=== PATIENT | male | born 1960 | race Caucasian/White ===

== ENCOUNTER 2020-11-02 11:52 | Inpatient (IN) | payer BC ==
--- OUTSIDE RECORDS SUMMARY | 2020-11-02 12:11 | XMS REPORT | Continuity of Care Document ---
:1960 Author Organization [facility] Address [address] [place] [address] [address] [place] [address] Care Team Providers Name Role Phone Unavailable Unavailable Unavailable Problems This patient has no known problems. Allergies, Adverse Reactions, Alerts This patient has no known allergies or adverse reactions. Medications This patient has no known medications. Procedures This patient has no known procedures. Results This patient has no known results.
--- NOTE | 2020-11-02 13:13 | RAD REPORT ---
EXAM DESCRIPTION: RAD - Chest Pa And Lat (2 Views) - 11/02/2020 1:07 pm CLINICAL HISTORY: SOB Chest pain. COMPARISON: <Comparisons> FINDINGS: Interstitial and airspace opacity is present in the left parahilar region extending into t he left upper lobe as well as the right lower lobe. Small bilateral pleural effusions are seen. The h eart is normal in size. No displaced fractures. IMPRESSION: Bilateral interstitial and airspace opacities are present which have the appearance of a typical infection or bronchitis.
[2020-11-02 14:13] LABS: Absolute Lymphocytes (CBC) 1.7 K/uL (0.7-4.9); Basophils % 0.3 % (0-1.3); Lymphocytes % 13.4 % (15.3-44.8); MPV 7.8 fL (7.6-11.3); RBC Red Blood Cell Count 4.53 M/uL (4.33-5.43)
[2020-11-02 14:21] LABS: Protime INR 1.37
[2020-11-02 14:50] LABS: Albumin 2.5 g/dL (3.4-5.0); Bilirubin Direct 0.2 mg/dL (0-0.2); Bilirubin Total 0.4 mg/dL (0.2-1.0); Magnesium 1.7 mg/dL (1.8-2.4); Potassium 5.1 mmol/L (3.5-5.1); Protein, Total 6.6 g/dL (6.4-8.2)
[2020-11-02 14:57] LABS: Troponin (Emerg Dept Use Only) 1.61 ng/mL (0.0-0.045)
--- NOTE | 2020-11-02 16:05 | EDPHYS ---
Physician Documentation [facility] Name: Byron Block Age: 60 yrs Sex: Male : 1960 Arrival Date: 11/02/2020 Time: 11:53 Bed 18 Private MD: Javi Manriquez ED Physician Yrn Denton HPI: 11/02 17:51 This 60 yrs old Male presents to ER via Ambulatory with complaints of kb Shortness Of Breath. 17:51 The patient has shortness of breath with light activity. Onset: The symptoms/episode kb began/occurred 1 week(s) ago, and became worse today. Duration: The symptoms are intermittent. The patient's shortness of breath is aggravated by exertion, is alleviated by rest. Associated signs and symptoms: Pertinent positives: chest pain, productive cough. Severity of symptoms: At their worst the symptoms were moderate in the emergency department the symptoms are unchanged. The patient has not experienced similar symptoms in the past. The patient has not recently seen a physician. Historical: - Allergies: 12:07 No Known Allergies; jd3 - Home Meds: 12:07 pantoprazole oral oral [Active]; amlodipine oral [Active]; Bystolic oral oral [Active]; jd3 Myfortic oral oral [Active]; Prograf Oral [Active]; pravastatin oral oral [Active]; fludrocortisone oral oral [Active]; Novolog subcutaneous Sub-Q [Active]; Lantus Sub-Q [Active]; - PMHx: 12:07 Hypertension; Diabetes - IDDM; GERD; jd3 - PSHx: 12:07 liver tansplant; Appendectomy; jd3 - Immunization history:: Adult Immunizations up to date. - Social history:: Smoking status: Patient reports the use of cigarette tobacco products, smokes one pack cigarettes per day. ROS: 17:50 Constitutional: Negative for fever, chills, and weight loss. kb 17:50 Cardiovascular: Positive for chest pain, "feels like lower chest/upper abd is caving in at times", Negative for edema, orthopnea, palpitations, paroxysmal nocturnal dyspnea. 17:50 Respiratory: Positive for cough, dyspnea on exertion, shortness of breath, Negative for hemoptysis, orthopnea, pleurisy, wheezing. 17:50 All other systems are negative. Exam: 17:50 Constitutional: This is a well developed, well nourished patient who is awake, alert, kb and in no acute distress. Head/Face: Normocephalic, atraumatic. ENT: Moist Mucous membranes Cardiovascular: Regular rate and rhythm with a normal S1 and S2. No gallops, murmurs, or rubs. No pulse deficits. Respiratory: Respirations even and unlabored. No increased work of breathing, no retractions or nasal flaring. Abdomen/GI: Soft, non-tender. No distention Skin: Warm, dry with normal turgor. Normal color. MS/ Extremity: Pulses equal, no cyanosis. Neurovascular intact. Full, normal range of motion. Neuro: Awake and alert, GCS 15, oriented to person, place, time, and situation. Moves all extremities. Normal gait. Psych: Awake, alert, with orientation to person, place and time. Behavior, mood, and affect are within normal limits. Vital Signs: 12:07 BP 105 / 77; Pulse 84; Resp 17 S; Temp 99.0(TE); Pulse Ox 100% on R/A; Weight 86.18 kg jd3 (R); Height 5 ft. 10 in. (177.80 cm) (R); Pain 8/10; 13:42 BP 107 / 84; Pulse 87; Resp 18; Pulse Ox 100% on R/A; ll1 15:30 BP 110 / 54; Pulse 83; Resp 18; Pulse Ox 99% on R/A; ll1 16:57 BP 123 / 63; Pulse 81; Resp 17; Pulse Ox 98% on R/A; ll1 19:02 BP 103 / 66; Pulse 84; Resp 16; Pulse Ox 98% on R/A; ll1 12:07 Body Mass Index 27.26 (86.18 kg, 177.80 cm) jd3 MDM: 13:42 Patient medically screened. kb 16:01 Data reviewed: vital signs, nurses notes. Data interpreted: Pulse oximetry: on room air kb is 100 %. Interpretation: normal. Counseling: I had a detailed discussion with the patient and/or guardian regarding: the historical points, exam findings, and any diagnostic results supporting the discharge/admit diagnosis, lab results, radiology results, the need for further work-up and treatment in the hospital. Physician consultation: Charlee Villatoro MD was contacted at 16:02, regarding admission, to the telemetry unit. patient's condition, and will see patient in ED, shortly, will admit to sybil. 11/02 13:50 Order name: Basic Metabolic Panel; Complete Time: 15:01 kb 11/02 13:50 Order name: CBC with Diff; Complete Time: 14:26 kb 11/02 13:50 Order name: LFT's; Complete Time: 15:01 kb 11/02 13:50 Order name: Magnesium; Complete Time: 15:01 kb 11/02 13:50 Order name: NT PRO-BNP; Complete Time: 15:01 kb 11/02 13:50 Order name: PT-INR; Complete Time: 14:45 kb 11/02 12:16 Order name: Chest Pa And Lat (2 Views) XRAY; Complete Time: 13:43 sv 11/02 12:16 Order name: EKG; Complete Time: 12:16 sv 11/02 12:16 Order name: EKG - Nurse/Tech; Complete Time: 12:16 sv 11/02 13:50 Order name: Troponin (emerg Dept Use Only); Complete Time: 15:01 kb 11/02 13:50 Order name: Cardiac monitoring; Complete Time: 13:52 kb 11/02 15:49 Order name: SARS-COV-2 RT PCR; Complete Time: 15:51 EDMS 11/02 17:19 Order name: CONS Physician Consult EDOH 11/02 13:50 Order name: IV Saline Lock; Complete Time: 13:52 kb 11/02 13:50 Order name: Labs collected and sent; Complete Time: 13:52 kb 11/02 13:50 Order name: O2 Per Protocol; Complete Time: 13:52 kb 11/02 13:50 Order name: O2 Sat Monitoring; Complete Time: 13:52 kb Administered Medications: No medications were administered Disposition: 11/03 07:06 Co-signature as Attending Physician, Yrn Denton MD. rn Disposition: 11/02/20 16:04 Hospitalization ordered by Elton Valle for Inpatient Admission. Preliminary diagnosis are Dyspnea, Elevated troponin, hyponatremia. - Bed requested for Telemetry/MedSurg (Inpatient). - Status is Inpatient Admission. ea - Condition is Stable. - Problem is new. - Symptoms are unchanged. Signatures: Dispatcher [employer] EDMS Huma Lopez, LICENSED PHARMACIST-C LICENSED PHARMACIST-Ckb Nicki Degroot Danyell Beltrán, RN RN Yrn Aguilar MD MD rn Antunez, Elena, RN RN ea Davies, Jonathon RN RN jd3 Corrections: (The following items were deleted from the chart) 11/02 14:49 13:50 CORONAVIRUS+MR.LAB.BRZ ordered. EDOH EDOH 18:47 16:04 Hospitalization Ordered by Elton Valle DO for Inpatient Admission. Preliminary bd diagnosis is Dyspnea; Elevated troponin; hyponatremia. Bed requested for Telemetry/MedSurg (Inpatient). Status is Inpatient Admission. Condition is Stable. Problem is new. Symptoms are unchanged. kb 20:20 18:47 11/02/2020 16:04 Hospitalization Ordered by Elton Valle DO for Inpatient ea Admission. Preliminary diagnosis is Dyspnea; Elevated troponin; hyponatremia. Bed requested for Telemetry/MedSurg (Inpatient). Status is Inpatient Admission. Condition is Stable. Problem is new. Symptoms are unchanged. bd
--- NOTE | 2020-11-02 16:05 | ER ---
Nurse's Notes [facility] Name: Byron Block Age: 60 yrs Sex: Male : 1960 Arrival Date: 11/02/2020 Time: 11:53 Bed 18 Private MD: Javi Manriquez Diagnosis: Dyspnea;Elevated troponin;hyponatremia Presentation: 11/02 12:02 Chief complaint: Patient states: "I have been getting short of breath with exertion. no jd3 pain, just seems like I loose my breath walking from one place to the next.". Coronavirus screen: At this time, the client does not indicate any symptoms associated with coronavirus-19. Ebola Screen: Patient negative for fever greater than or equal to 101.5 degrees Fahrenheit, and additional compatible Ebola Virus Disease symptoms. Initial Sepsis Screen: Does the patient meet any 2 criteria? No. Patient's initial sepsis screen is negative. Does the patient have a suspected source of infection? No. Patient's initial sepsis screen is negative. Risk Assessment: Do you want to hurt yourself or someone else? Patient reports no desire to harm self or others. Onset of symptoms was November 02, 2020. 12:02 Method Of Arrival: Ambulatory jd3 12:02 Acuity: JUSTINE 3 jd3 Historical: - Allergies: 12:07 No Known Allergies; jd3 - Home Meds: 12:07 pantoprazole oral oral [Active]; amlodipine oral [Active]; Bystolic oral oral [Active]; jd3 Myfortic oral oral [Active]; Prograf Oral [Active]; pravastatin oral oral [Active]; fludrocortisone oral oral [Active]; Novolog subcutaneous Sub-Q [Active]; Lantus Sub-Q [Active]; - PMHx: 12:07 Hypertension; Diabetes - IDDM; GERD; jd3 - PSHx: 12:07 liver tansplant; Appendectomy; jd3 - Immunization history:: Adult Immunizations up to date. - Social history:: Smoking status: Patient reports the use of cigarette tobacco products, smokes one pack cigarettes per day. Screenin:44 Abuse screen: Denies threats or abuse. Nutritional screening: No deficits noted. ll1 Tuberculosis screening: No symptoms or risk factors identified. 16:58 Fall Risk IV access (20 points). Total Jordan Fall Scale indicates No Risk (0-24 pts). ll1 Assessment: 12:16 Reassessment: Received VO from Dr Denton for EKG and CXR. sv 13:44 General: Appears in no apparent distress. Behavior is calm, cooperative, appropriate ll1 for age. Pain: Denies pain. Neuro: No deficits noted. Cardiovascular: No deficits noted. Rhythm is regular. Respiratory: Reports shortness of breath on exertion Airway is patent Trachea midline Respiratory effort is even, unlabored, Respiratory pattern is regular, symmetrical, Breath sounds are clear bilaterally. the patient has mild shortness of breath. 14:45 Reassessment: No changes from previously documented assessment. Patient and/or family ll1 updated on plan of care and expected duration. Pain level reassessed. 15:45 Reassessment: No changes from previously documented assessment. Patient and/or family ll1 updated on plan of care and expected duration. Pain level reassessed. Patient is alert, oriented x 3, equal unlabored respirations, skin warm/dry/pink. 16:45 Reassessment: No changes from previously documented assessment. Patient and/or family ll1 updated on plan of care and expected duration. Pain level reassessed. 17:45 Reassessment: No changes from previously documented assessment. Patient and/or family ll1 updated on plan of care and expected duration. Pain level reassessed. Patient is alert, oriented x 3, equal unlabored respirations, skin warm/dry/pink. 18:45 Reassessment: No changes from previously documented assessment. Patient and/or family ll1 updated on plan of care and expected duration. Pain level reassessed. Patient is alert, oriented x 3, equal unlabored respirations, skin warm/dry/pink. 19:20 Reassessment: Patient and/or family updated on plan of care and expected duration. Pain ea level reassessed. Patient is alert, oriented x 3, equal unlabored respirations, skin warm/dry/pink. Vital Signs: 12:07 BP 105 / 77; Pulse 84; Resp 17 S; Temp 99.0(TE); Pulse Ox 100% on R/A; Weight 86.18 kg jd3 (R); Height 5 ft. 10 in. (177.80 cm) (R); Pain 8/10; 13:42 BP 107 / 84; Pulse 87; Resp 18; Pulse Ox 100% on R/A; ll1 15:30 BP 110 / 54; Pulse 83; Resp 18; Pulse Ox 99% on R/A; ll1 16:57 BP 123 / 63; Pulse 81; Resp 17; Pulse Ox 98% on R/A; ll1 19:02 BP 103 / 66; Pulse 84; Resp 16; Pulse Ox 98% on R/A; ll1 12:07 Body Mass Index 27.26 (86.18 kg, 177.80 cm) jd3 ED Course: 11:53 Patient arrived in ED. as 11:53 Javi Manriquez MD is Private Physician. as 12:04 Triage completed. jd3 12:07 Arm band placed on. jd3 13:07 Chest Pa And Lat (2 Views) XRAY In Process Unspecified. EDMS 13:42 Huma Lopez FNP-C is PHCP. kb 13:42 Yrn Denton MD is Attending Physician. kb 13:42 Patient placed in an exam room, on a stretcher. ll1 13:52 Migue Rowley, RILEY is Primary Nurse. ll1 14:05 Inserted saline lock: 22 gauge in right antecubital area, using aseptic technique. ll1 Blood collected. 14:13 Patient has correct armband on for positive identification. Bed in low position. Call ll1 light in reach. Side rails up X 1. compliance monitor on. Pulse ox on. NIBP on. 16:03 Elton Valle DO is Hospitalizing Provider. kb 19:19 No provider procedures requiring assistance completed. Patient admitted, IV remains in ea place. Administered Medications: No medications were administered Outcome: 16:04 Decision to Hospitalize by Provider. kb 19:19 Instructed on the need for admit, Demonstrated understanding of instructions, follow-up ea care. 20:20 Patient left the ED. ea Signatures: Dispatcher [employer] EDMS Huma Lopez FNP-C FNP-Danyell Aguiar, RN Vicki Simpson Elena, RN RN ea Davies, Jonathon, RN RN jd3 Lewis, Lynsay, RILEY RN ll1
--- NOTE | 2020-11-02 18:48 | P.HP ---
Certification for Inpatient With expected LOS: <2 Midnights Patient will require the following post-hospital care: None Practitioner: I am a practitioner with admitting privileges, knowledge of patient current condition, hospital course, and medical plan of care. Services: Services provided to patient in accordance with Admission requirements found in Title 42 Section 412.3 of the Code of Federal Regulations <Charlee Toscano - Last Filed: 11/02/20 18:40> Patient History Date of Service: 11/02/20 Reason for admission: CHF exacerbation History of Present Illness: This is a 60 y/o M w/ HTN, T2DM, tobacco use, liver transplant s/p 2006, who presents today w/ worsening shortness of breath on exertion x 1 week. He reports the SOB is worse today which is why he came into the ED. He reports this has never occurred before and denies any history of CHF. He states the SOB is worsened w/ activity. He c/o productive cough x 3-4days. He c/o "general" chest pain and endorses orthopnea. Denies any nausea, fever, chills. WBC 12.50, troponin 1.61, BNP 85677, Cr 1.81 CXR shows bilateral interstitial and airspace opacities are present which have the appearance of atypical infection or bronchitis. - Past Medical/Surgical History -: HTN -: T2DM -: HLD -: skin cancer -: liver transplant 2006 -: appendectomy Psychosocial/ Personal History: lives w/ - Social History Smoking Status: Current every day smoker (1 pack/day) Alcohol use: No CD- Drugs: No Caffeine use: Yes <ToscanoCharlee - Last Filed: 11/02/20 18:40> Date of Service: 11/03/20 - Family History Family History: Reviewed- Non-Contributory - Social History Place of Residence: Home <Elton Valle - Last Filed: 11/03/20 05:48> Allergies No Known Allergies Allergy (Verified 11/02/20 20:26) Home Medications: Amlodipine [Norvasc*] 2.5 mg PO BID 11/02/20 Aspirin 81 mg PO DAILY 11/02/20 Fludrocortisone [Florinef *] 0.1 mg PO SEECOM 11/02/20 Insulin Aspart [Novolog Flexpen] See Protocol SQ TID 11/02/20 Insulin Glargine,Hum.rec.anlog [Lantus] 22 units SQ BEDTIME 11/02/20 Mycophenolate Sodium [Myfortic] 360 mg PO Q12H 11/02/20 Nebivolol HCl [Bystolic] 10 mg PO BID 11/02/20 Pantoprazole Sodium [Protonix] 40 mg PO DAILY 11/02/20 Pravastatin Sodium 20 mg PO DAILY 11/02/20 Semaglutide [Ozempic] 0.5 mg SQ EVERY 7TH DAY 11/02/20 Tacrolimus [Prograf] 3 cap PO BID 11/02/20 Review of Systems Cardiovascular: As per HPI <Charlee Toscano - Last Filed: 11/02/20 18:40> Physical Examination - Physical Exam General: Alert, In no apparent distress, Oriented x3 HEENT: Atraumatic, Normocephalic, Mucous membr. moist/pink Neck: Supple Respiratory: Clear to auscultation bilaterally, Normal air movement Cardiovascular: No edema, Regular rate/rhythm, Normal S1 S2 Capillary refill: <2 Seconds Gastrointestinal: Normal bowel sounds, Soft and benign, Non-distended, No tenderness, No rebound, No guarding Musculoskeletal: No tenderness Integumentary: No rashes Neurological: Normal speech, Normal tone, Cranial nerves 3-12 intact, Normal affect Lymphatics: No axilla or inguinal lymphadenopathy - Studies Laboratory Data (last 24 hrs) 11/02/20 13:55: PT 15.8 H, INR 1.37 11/02/20 13:55: WBC 12.50 H, Hgb 11.2 L, Hct 34.0 L, Plt Count 501 H 11/02/20 13:55: Sodium 126 L, Potassium 5.1, BUN 18, Creatinine 1.81 H, Glucose 232 H, Magnesium 1.7 L, Total Bilirubin 0.4, AST 15, ALT 19, Alkaline Phosphatase 157 H <Charlee Toscano - Last Filed: 11/02/20 18:40> - Studies Laboratory Data (last 24 hrs) 11/02/20 13:55: PT 15.8 H, INR 1.37 11/02/20 13:55: WBC 12.50 H, Hgb 11.2 L, Hct 34.0 L, Plt Count 501 H 11/02/20 13:55: Sodium 126 L, Potassium 5.1, BUN 18, Creatinine 1.81 H, Glucose 232 H, Magnesium 1.7 L, Total Bilirubin 0.4, AST 15, ALT 19, Alkaline Phosphatase 157 H <Elton Valle - Last Filed: 11/03/20 05:48> Assessment and Plan - Problems (Diagnosis) (1) CHF exacerbation Current Visit: Yes Status: Acute (2) NSTEMI (non-ST elevated myocardial infarction) Current Visit: Yes Status: Acute (3) Hypertension Current Visit: Yes Status: Chronic Qualifiers: Hypertension type: essential hypertension Qualified Code(s): I10 - Essential (primary) hypertension (4) Diabetes mellitus type 2, insulin dependent Current Visit: Yes Status: Chronic (5) Hyperlipidemia Current Visit: Yes Status: Chronic - Plan initial troponin 1.61, trend cardiac enzymes consulted cardiology aspirin 81 heparin echo ordered telemetry BNP 83595, IV lasix CXR ordered WBC 12.5, sputum cultures ordered. hold off on antibiotics. pro-merlin pending insulin sliding scale and accuchecks continue home meds Discharge Plan: Home Plan to discharge in: 48 Hours - Advance Directives Does patient have a Living Will: No Does patient have a Durable POA for Healthcare: No - Code Status/Comfort Care Code Status Assessed: Yes Code Status: Full Code <Charlee Toscano - Last Filed: 11/02/20 18:40> - Plan agree with plan of care. Impression: Shortness of breath secondary to acute CHF likely diastolic complicated with NSTEMI Hypertension Chronic renal disease stage III Anemia of chronic disease Possible bronchitis Plan: Continue with above plan of care. Case discussed with cardiology. Nephrology will be consulted. Please see progress note for details. Time Spent Managing Pts Care (In Minutes): 55 <Elton Valle - Last Filed: 11/03/20 05:48>
[2020-11-02] MEDS ORDERED: ONDANSETRON 4 MG/2 ML VIAL IV PRN (20:22)
[2020-11-02] MEDS ORDERED: ACETAMINOPHEN 500 MG TAB PO PRN (20:22)
[2020-11-02 20:26] VITALS: BMI 26.0
[2020-11-02] MEDS: MYCOPHENOLATE SODIUM 360 MG PO SCH (21:00)
[2020-11-02] MEDS: Tacrolimus [Prograf] 1 MG Capsule PO SCH (21:00)
[2020-11-02] MEDS ORDERED: Nebivolol Hcl [Bystolic] 10 MG Tablet PO SCH (21:00)
[2020-11-02] MEDS: INSULIN -REGULAR HUMAN 50 UNIT/0.5 ML ML SQ SCH ×2 (21:00→21:51)
[2020-11-02] MEDS ORDERED: D50W 25 GM/50 ML SYRINGE IV PRN (21:00)
[2020-11-02] MEDS ORDERED: GLUCAGON 1 MG/VIAL IM PRN (21:00)
[2020-11-02 21:46] LABS: CKMB Creatine Kinase MB 3.8 ng/mL (1.0-3.6)
[2020-11-02 21:48] LABS: Troponin I 1.53 ng/mL (0.0-0.045)
[2020-11-02] MEDS: HEPARIN 5000 UNIT/ML 1 ML VIAL SQ SCH (21:51)
[2020-11-02] MEDS: INSULIN GLARGINE 100 UNITS/ML SQ SCH (21:52)
[2020-11-02] MEDS: AMLODIPINE 2.5 MG TAB PO SCH (21:56)
[2020-11-02] MEDS ORDERED: FUROSEMIDE 20 MG/ 2ML VIAL IV SCH (22:00)
[2020-11-03 02:40] LABS: Urine Appearance CLEAR (Clear); Urine Bilirubin NEGATIVE (Negative); Urine Blood NEGATIVE (Negative); Urine Color YELLOW (Yellow); Urine Glucose NEGATIVE (Negative); Urine Microscopic Reflex NO UMIC; Urine Protein NEGATIVE (Negative); Urine Urobilinogen 0.2 mg/dL (0.2-1.0); Urine pH 5.5 (5.0-7.0)
[2020-11-03 05:18] LABS: Absolute Lymphocytes (CBC) 1.9 K/uL (0.7-4.9); Basophils % 0.6 % (0-1.3); Hematocrit 29.6 % (39.6-49.0); Lymphocytes % 20.6 % (15.3-44.8); MPV 8.1 fL (7.6-11.3); RBC Red Blood Cell Count 3.89 M/uL (4.33-5.43)
[2020-11-03 06:05] LABS: Albumin 2.1 g/dL (3.4-5.0); Bilirubin Total 0.3 mg/dL (0.2-1.0); Magnesium 1.7 mg/dL (1.8-2.4); Phosphorus 3.4 mg/dL (2.5-4.9); Potassium 4.7 mmol/L (3.5-5.1); Protein, Total 5.9 g/dL (6.4-8.2); Thyroid Stimulating Hormone 2.2 uIU/mL (0.360-3.740)
[2020-11-03 06:07] LABS: Troponin I 1.07 ng/mL (0.0-0.045)
--- NOTE | 2020-11-03 07:07 | RAD REPORT ---
EXAM DESCRIPTION: RAD - Chest Single View - 11/03/2020 6:20 am CLINICAL HISTORY: CHF COMPARISON: Two view chest November 02 TECHNIQUE: AP portable chest image was obtained 11/03/2020 6:20 am . FINDINGS: Extensive chronic interstitial lung disease is again noted. Interstitial and alveolar opac ities have improved in the right lung base. No progressive right lung field finding. However, interst itial and alveolar opacities have shown progression on the left. Heart and vasculature are normal. No measurable pleural effusion and no pneumothorax. No acute bony abnormality seen. No acute aortic findings suspected. IMPRESSION: Worsening interstitial and alveolar opacification of the left lung field. Unilateral pro gression is not common in CHF and correlation is needed with any pneumonia findings. Right lung field base is improved from prior day imaging.
[2020-11-03] MEDS ORDERED: MAGNESIUM SULFATE 1 gm IVPB 1 GM/100 ML BAG IV ONE (07:30)
[2020-11-03] MEDS: INSULIN -REGULAR HUMAN 50 UNIT/0.5 ML ML SQ SCH ×4 (07:30→21:00)
[2020-11-03] MEDS ORDERED: PANTOPRAZOLE 40MG TABLET PO SCH ×2 (07:30)
[2020-11-03] MEDS ORDERED: FUROSEMIDE 20 MG/ 2ML VIAL IV SCH (09:00)
[2020-11-03] MEDS ORDERED: AMLODIPINE 5 MG TAB PO SCH (09:00)
[2020-11-03] MEDS: AMLODIPINE 2.5 MG TAB PO SCH (09:00)
[2020-11-03] MEDS: NEBIVOLOL HCL 5 MG TAB PO SCH ×2 (09:00→21:23)
[2020-11-03] MEDS: MYCOPHENOLATE SODIUM 360 MG PO SCH ×2 (09:00→21:00)
[2020-11-03] MEDS: Tacrolimus [Prograf] 1 MG Capsule PO SCH ×2 (09:00→21:00)
[2020-11-03] MEDS ORDERED: ATORVASTATIN 10 MG TAB PO SCH (09:00)
[2020-11-03] MEDS: FLUDROCORTISONE 0.1 MG TAB PO SCH (10:34)
[2020-11-03] MEDS: HEPARIN 5000 UNIT/ML 1 ML VIAL SQ SCH ×2 (10:34→21:23)
[2020-11-03] MEDS: ASPIRIN EC 81 MG TAB PO SCH (10:34)
[2020-11-03] MEDS: FUROSEMIDE 20 MG TABLET PO SCH ×2 (10:35→17:39)
--- NOTE | 2020-11-03 13:50 | CON ---
History Of Present Illness: The patient is a 60-year-old white male, seen in room 222 on [facility]. The patient is alert, awake and comfortable, able to answer questions. He states that h e is feeling a whole lot better compared to when he came in. When he came in, he said he has shortne ss of breath. He was having difficulty taking breath or moving around much without running out of br eath. He is able to breath comfortably now. He is able to move around a little bit better. He is s till on bedrest, awaiting for possibility of a cardiac catheterization evaluation. He understands th at he came into congestive heart failure. He states to me that he has had a history of hemochromatos is, which caused liver failure for him and liver disease, required him to get a liver transplant. He has been on tacrolimus 3 mg twice a day, 6 mg dose daily. He states that he follows up with a liver transplant team. He also sees my partner, Dr. Manriquez, hand molder in [place] and has been following with her. The patient states that his sodium always runs a little bit on the lower side, p erhaps close to 130. He does have some swelling in his lower extremities, which is about positive 1 bilaterally. Given his low albumin, one would expect that actually to be reasonably good given his a lbumin is so low and he is expected to third space. He has low blood pressures running in the high 9 0s to low 100 range. He denies currently any pain. He has been kept n.p.o. for possibility of cardi ac cath later today. Cardiology has been consulted. Physical Examination: Vital Signs: His vitals are stable currently with a blood pressure slightly on the lower side betwee n 99 to about 120. He did have a reading of 93 systolic and diastolic of 50 earlier in the morning. His O2 sats are about 96%. He is not on any oxygen. He is on room air. Lungs: Clear. Abdomen: Soft. Extremities: Reveal positive 1 edema bilaterally. Neurologic: He is alert, awake, able to talk comfortably without getting short of breath. Past Medical History: Significant for hemochromatosis, history of liver transplant. He has a histor y of hypertension. He states that he runs low sodium and has a history of hyponatremia, history of l ow albumin, and some edema. Social History: He does smoke cigarettes and he does not have any history of IVDA either and does no t have any history or current use of alcohol abuse. Family History: Noncontributory at this point. He does live at home. Allergies: NKDA. Home Medications: Reviewed. The patient has been on Prograf 3 mg p.o. b.i.d. He states that he had a level done about a month ago and that was in normal range. He has not had any dose changes. He h as not taken the morning dose yet because he is n.p.o. and because the medications are being cleared by the pharmacy. The patient does take Ozempic for diabetes. He also takes insulin Lantus and short -acting insulin. He is also on amlodipine 2.5 mg p.o. b.i.d. He is on nebivolol, Bystolic 10 mg p.o . b.i.d. Laboratory Data: Lab data reviewed. The patient's labs show WBC count of 9.3, hemoglobin and hemato crit of 9.8 and 29.6, platelet count of 444. Chemistry shows sodium 125, yesterday was 126 reasonabl y stable. Potassium 4.7, chloride 96, bicarb is 22, BUN is 20, creatinine 1.76 which is a slight imp rovement from 1.81 yesterday despite him having diuresis. His last glucose level was 197, calcium at 8.6, phosphorus 3.4, magnesium 1.7. AST and ALT are 13 and 16. His troponin level was 1.53 yesterd ay, has come down to 1.07. Albumin level 2.1. TSH level of 2.2. Assessment And Plan: The patient with congestive heart failure, chest x-ray showing some congestion which has gotten a little bit worse since yesterday perhaps technique. The patient is clinically o paty better. He is breathing better. His O2 sats are in mid 90s on room air now. He does have a fe w crackles on physical exam at the bases of his lungs and he does have some edema in the lower extrem ities, but he is n.p.o. and on Lasix 20 mg b.i.d. Currently, he does not take any diuretics at home. Blood pressure is running on the lower side. We will go ahead and discontinue the amlodipine for n ow, monitor blood pressure. While the patient is n.p.o., we can continue the current dose of Lasix t o just correct his volume status further, that should also improve his sodium which seems to be low i n the setting of volume overload; however, the patient can be given more Lasix dosages once he is bet ter able to take p.o. intake and his blood pressure improves. We will check a BMP tomorrow morning. Appreciate your consultation. We will continue to follow this patient with you. /GUNNAR Voice ID: [id number] Report ID: [id number]
--- NOTE | 2020-11-03 14:32 | P.PN ---
Subjective Date of Service: 11/03/20 Primary Care Provider: Dr. Mckeon Chief Complaint: CHF exacerbation Subjective: Improving, Doing well Physical Examination - Vital Signs Temperature: 98.3 F Blood Pressure: 112/56 Pulse: 87 Respirations: 18 Pulse Ox (%): 95 - Studies Laboratory Data (last 24 hrs) 11/02/20 13:55: PT 15.8 H, INR 1.37 11/02/20 13:55: Sodium 126 L, Potassium 5.1, BUN 18, Creatinine 1.81 H, Glucose 232 H, Magnesium 1.7 L, Total Bilirubin 0.4, AST 15, ALT 19, Alkaline Phosphatase 157 H Assessment & Plan Discharge Plan: Home Plan to discharge in: 24 Hours Physician Review Additional Text: Physical Exam: GENERAL: The patient is a well-developed, well-nourished, in no apparent distress. Alert and oriented x3. VITAL SIGNS: Reviewed HEENT: Head is normocephalic and atraumatic. Extraocular muscles are intact. Pupils are equal, round, and reactive to light and accommodation. Nares appeared normal. Mouth is well hydrated and without lesions. Mucous membranes are moist. NECK: Supple. No carotid bruits. No lymphadenopathy or thyromegaly. LUNGS: Clear to auscultation. No crackles or wheezes are heard. HEART: Regular rate and rhythm, no appreciable gallops, rubs, murmurs or extra heart sounds ABDOMEN: Soft, nontender, and nondistended. Positive bowel sounds. No hepatosplenomegaly was noted. EXTREMITIES: No significant pitting edema to the lower extremity.. NEUROLOGIC: The patient is oriented to person, place and time. Strength and sensation are grossly intact. Face is symmetric. SKIN: Normal color, turgor and temperature. No ulcerations or rashes noted. Impression: Shortness of breath suspect acute on chronic diastolic CHF Elevated troponin likely related to acute on chronic diastolic CHF History of hemochromatosis with liver transplant Hypertension Hyperlipidemia Diabetes mellitus type 2 insulin-dependent Chronic renal disease stage III with hyponatremia Anemia of chronic disease Plan: Shortness of breath suspect acute on chronic diastolic CHF: Patient has done well with diuresis. IV diuretic therapy decreased to p.o. Continue fluid restriction. Await echocardiogram. Case discussed with cardiology. Will obtain cardiac stress test to further evaluate his condition. Nephrology has decreased blood pressure medication. Medications reviewed and adjusted. Await findings from cardiac stress test and echocardiogram. Anticipate improvement over the next 24 to 48 hours. Elevated troponin likely related to acute on chronic diastolic CHF: Elevated troponin likely related to acute on chronic CHF. Will monitor closely. Echocardiogram pending. Cardiac stress test ordered. History of hemochromatosis with liver transplant: Continue with his antirejection medication. Hypertension: Blood pressure medication adjusted. Hyperlipidemia: Continue with medication Diabetes mellitus type 2 insulin-dependent: Hemoglobin A1c 8.6. Sliding scale in place. Continue basal insulin. Will monitor and adjust appropriately. Chronic renal disease stage III with hyponatremia: Medications reviewed and adjusted by nephrology. Continue with nephrology recommendations as above. Patient will have echocardiogram and cardiac stress test to further evaluate. Code Status: Full Code DVT prophylaxis: Heparin Advanced Care Planning-30 minutes: Plan of care for the patient's discharge was discussed in detail with the patient and family. Time Spent Managing Pts Care (In Minutes): 55
[2020-11-03] MEDS ORDERED: D50W 25 GM/50 ML VIAL IV PRN (16:00)
[2020-11-03] MEDS ORDERED: LORazepam 2 MG/ML VIAL IV ONE (19:59)
[2020-11-03] MEDS: GLUCERNA SHAKE 237 ML CAN PO SCH (21:24)
[2020-11-03] MEDS: INSULIN GLARGINE 100 UNITS/ML SQ SCH (21:24)
[2020-11-04] MEDS ORDERED: NA CHLORIDE 0.9% 500 ML IV PRN (04:29)
[2020-11-04 05:54] LABS: Absolute Lymphocytes (CBC) 1.7 K/uL (0.7-4.9); Basophils % 0.5 % (0-1.3); Hematocrit 29.3 % (39.6-49.0); Lymphocytes % 15.4 % (15.3-44.8); MPV 7.6 fL (7.6-11.3); RBC Red Blood Cell Count 3.83 M/uL (4.33-5.43)
[2020-11-04 06:32] LABS: Bilirubin Total 0.3 mg/dL (0.2-1.0); Ferritin 524.1 ng/mL (26-388); Magnesium 1.7 mg/dL (1.8-2.4); Potassium 4.4 mmol/L (3.5-5.1); Protein, Total 5.5 g/dL (6.4-8.2)
[2020-11-04] MEDS ORDERED: MAGNESIUM SULFATE 1 gm IVPB 1 GM/100 ML BAG IV ONE (07:09)
[2020-11-04] MEDS: PANTOPRAZOLE 40 MG PO SCH (07:30)
[2020-11-04] MEDS: INSULIN -REGULAR HUMAN 50 UNIT/0.5 ML ML SQ SCH ×4 (07:30→21:00)
--- NOTE | 2020-11-04 07:30 | EKG ---
Test Date: 2020-11-02 Test Time: 12:11:45 Sponge Hooker: RAMIRO MEASUREMENT RESULTS: Intervals: Rate: 83 [place]: 148 QRSD: 100 QT: 396 QTc: 465 [place]: P: 45 [place]: 148 QRS: 8 T: -63 INTERPRETIVE STATEMENTS: Normal sinus rhythm Inferior infarct, age undetermined Anterior infarct, age undetermined ST & T wave abnormality, consider lateral ischemia Abnormal ECG No previous ECG available for comparison Electronically Signed On 11-04-20 07:26:56 CDT by Sean Dejesus
[2020-11-04] MEDS: GLUCERNA SHAKE 237 ML CAN PO SCH ×2 (08:26→21:00)
[2020-11-04] MEDS: ASPIRIN EC 81 MG TAB PO SCH ×2 (08:26→13:41)
[2020-11-04] MEDS: HEPARIN 5000 UNIT/ML 1 ML VIAL SQ SCH ×2 (08:28→21:20)
[2020-11-04] MEDS: PRAVASTATIN 20 MG TABLET PO SCH (08:29)
[2020-11-04] MEDS: MYCOPHENOLATE SODIUM 360 MG PO SCH ×2 (08:29→21:00)
[2020-11-04] MEDS: Tacrolimus [Prograf] 1 MG Capsule PO SCH ×2 (08:29→21:00)
--- NOTE | 2020-11-04 09:03 | ECHO ---
HEIGHT: 5 ft 10 in WEIGHT: 181 lb 4.8 oz DATE OF STUDY: 11/03/[address]: Charlee Toscano 2-DIMENSIONAL: YES M.MODE: YES DOPPLER: YES COLOR FLOW: YES TDS: NO PORTABLE: NO DEFINITY: NO BUBBLE STUDY: NO DIAGNOSIS: CONGESTIVE HEART FAILURE CARDIAC HISTORY: CATHERIZATION: NO SURGERY: NO PROSTHETIC VALVE: NO PACEMAKER: NO MEASUREMENTS (cm) DIASTOLIC (NORMALS) SYSTOLIC (NORMALS) IVSd 1.0 (0.6-1.2) LA Diam 3.5 (1.9-4.0) LVEF 57% LVIDd 5.7 (3.5-5.7) LVIDs 4.0 (2.0-3.5) %FS 30% LVPWd 1.0 (0.6-1.2) Ao Diam 2.9 (2.0-3.7) 2 DIMENSIONAL ASSESSMENT: RIGHT ATRIUM: NORMAL LEFT ATRIUM: NORMAL RIGHT VENTRICLE: NORMAL LEFT VENTRICLE: NORMAL TRICUSPID VALVE: NORMAL MITRAL VALVE: NORMAL PULMONIC VALVE: NORMAL AORTIC VALVE: NORMAL PERICARDIAL EFFUSION: NONE AORTIC ROOT: NORMAL LEFT VENTRICULAR WALL MOTION: NORMAL. DOPPLER/COLOR FLOW: NORMAL. COMMENTS: NORMAL 2D ECHO WITH DOPPLER. NO WALL MOTION ABNORMALITY. NO EFFUSION. TECHNOLOGIST: FLOR PULLIAM
--- NOTE | 2020-11-04 09:20 | P.PN ---
Subjective Date of Service: 11/04/20 Primary Care Provider: Dr. Mckeon Chief Complaint: CHF exacerbation Subjective: Improving, Doing well Physical Examination - Vital Signs Temperature: 98.4 F Blood Pressure: 101/56 Pulse: 86 Respirations: 19 Pulse Ox (%): 95 Assessment & Plan Discharge Plan: Home Plan to discharge in: 24 Hours Physician Review Additional Text: Physical Exam: GENERAL: Patient doing well at this time. No complaints noted. Blood pressure slightly low. Blood pressure medication/diuretic held. Patient given IV fluid bolus. Patient reports no complaints. VITAL SIGNS: Reviewed HEENT: Head is normocephalic and atraumatic. Extraocular muscles are intact. Pupils are equal, round, and reactive to light and accommodation. Nares appeared normal. Mouth is well hydrated and without lesions. Mucous membranes are moist. NECK: Supple. No carotid bruits. No lymphadenopathy or thyromegaly. LUNGS: Clear to auscultation. No crackles or wheezes are heard. HEART: Regular rate and rhythm, no appreciable gallops, rubs, murmurs or extra heart sounds ABDOMEN: Soft, nontender, and nondistended. Positive bowel sounds. No hepatosplenomegaly was noted. EXTREMITIES: No significant pitting edema to the lower extremity.. NEUROLOGIC: The patient is oriented to person, place and time. Strength and sensation are grossly intact. Face is symmetric. SKIN: Normal color, turgor and temperature. No ulcerations or rashes noted. Impression: Shortness of breath suspect acute on chronic diastolic CHF Elevated troponin likely related to acute on chronic diastolic CHF History of hemochromatosis with liver transplant Hypertension Hyperlipidemia Diabetes mellitus type 2 insulin-dependent Chronic renal disease stage III with hyponatremia Anemia of chronic disease Plan: Shortness of breath suspect acute on chronic diastolic CHF: Blood pressure slightly low this morning. Discontinue diuretic therapy. We will also discontinue blood pressure medication for now. Spoke with cardiology yesterday. Cardiology recommends cardiac stress test today. Echo unremarkable. Await cardiac stress test findings. Patient may require heart catheterization if cardiac stress test abnormal. If unremarkable patient desires to go home. Will need to discuss with cardiology and nephrology about plan of care. Likely home in the next 24 hours. Elevated troponin likely related to acute on chronic diastolic CHF: Elevated troponin likely related to acute on chronic CHF. Echo unremarkable. Cardiac st ress test ordered History of hemochromatosis with liver transplant: Continue with his antirejection medication. Hypertension: Blood pressure medication discontinued due to low blood pressure this morning. Will monitor closely. May need to make adjustments at discharge Hyperlipidemia: Continue with medication Diabetes mellitus type 2 insulin-dependent: Hemoglobin A1c 8.6. Sliding scale in place. Continue basal insulin. Will monitor and adjust appropriately. Chronic renal disease stage III with hyponatremia: Medications reviewed and adjusted by nephrology. Continue with nephrology recommendations as above. Patient will have echocardiogram and cardiac stress test to further evaluate. Code Status: Full Code DVT prophylaxis: Heparin Advanced Care Planning-30 minutes: Plan of care for the patient's discharge was discussed in detail with the patient and family. Time Spent Managing Pts Care (In Minutes): 55
[2020-11-04] MEDS ORDERED: REGADENOSON 0.4 MG/5 ML SYR IV ONE (10:02)
--- NOTE | 2020-11-04 12:57 | RAD REPORT ---
EXAM DESCRIPTION: NM - Rest Stress Cardiac Imaging - 11/04/2020 12:38 pm CLINICAL HISTORY: Chest pain COMPARISON: None. TECHNIQUE: The patient was administered 10.8 mCi of Tc 99m Sestamibi prior to resting SPECT imaging of the heart. The patient was then administered 30.9 mCi of Tc 99m Sestamibi following exercise or ph armacologic stress. Multiplanar SPECT images were reviewed. FINDINGS: The exam was technically difficult. Heart measured very large with end-diastolic volume of 309 mL and an end systolic volume of 250 mL. This calculates to an 19% ejection fraction. The heart does not appear this enlarged on the November 03 chest examination. The heart is difficult to fully incorporated into the [id number] due to its large size. Large fixe d defects are seen along the entire length of the inferior wall and significant portions of the mid a nd apical septal wall. An area of stress-induced ischemic change was not identifiable. There is a lar ge fixed defect at the apex. IMPRESSION: No stress-induced ischemic change identifiable. Large fixed defects are seen along the inferior wall and the apex. Calculated EDV 309 mL, ESV 250 mL and a 19% ejection fraction calculation.
--- NOTE | 2020-11-04 16:18 | P.DS ---
Admission Date: 11/02/20 Discharge Date: 11/04/20 Primary Care Provider: Dr. Mckeon Disposition: ROUTINE DISCHARGE Discharge Condition: GOOD Reason for Admission: CHF exacerbation Consultations: Cardiology-Dr. Dejesus Nephrology-Dr. Singh/Dr. Leyva Procedures: COVID: Negative ECHO: MEASUREMENTS (cm) DIASTOLIC (NORMALS) SYSTOLIC (NORMALS) IVSd 1.0 (0.6-1.2) LA Diam 3.5 (1.9-4.0) LVEF 57% LVIDd 5.7 (3.5-5.7) LVIDs 4.0 (2.0-3.5) %FS 30% LVPWd 1.0 (0.6-1.2) Ao Diam 2.9 (2.0-3.7) 2 DIMENSIONAL ASSESSMENT: RIGHT ATRIUM: NORMAL LEFT ATRIUM: NORMAL RIGHT VENTRICLE: NORMAL LEFT VENTRICLE: NORMAL TRICUSPID VALVE: NORMAL MITRAL VALVE: NORMAL PULMONIC VALVE: NORMAL AORTIC VALVE: NORMAL PERICARDIAL EFFUSION: NONE AORTIC ROOT: NORMAL LEFT VENTRICULAR WALL MOTION: NORMAL. DOPPLER/COLOR FLOW: NORMAL. COMMENTS: NORMAL 2D ECHO WITH DOPPLER. NO WALL MOTION ABNORMALITY. NO EFFUSION. Cardiac stress test: FINDINGS: The exam was technically difficult. Heart measured very large with end-diastolic volume of 309 mL and an end systolic volume of 250 mL. This calculates to an 19% ejection fraction. The heart does not appear this enlarged on the November 03 chest examination. The heart is difficult to fully incorporated into the [id number] due to its large size. Large fixed defects are seen along the entire length of the inferior wall and significant portions of the mid and apical septal wall. An area of str ess-induced ischemic change was not identifiable. There is a large fixed defect at the apex. IMPRESSION: No stress-induced ischemic change identifiable. Large fixed defects are seen along the inferior wall and the apex. Calculated EDV 309 mL, ESV 250 mL and a 19% ejection fraction calculation. Follow up CXR: FINDINGS: Extensive chronic interstitial lung disease is again noted. Interstitial and alveolar opacities have improved in the right lung base. No progressive right lung field finding. However, interstitial and alveolar opacities have shown progression on the left. Heart and vasculature are normal. No measurable pleural effusion and no pneumothorax. No acute bony abnormality seen. No acute aortic findings suspected. IMPRESSION: Worsening interstitial and alveolar opacification of the left lung field. Unilateral progression is not common in CHF and correlation is needed with any pneumonia findings. Right lung field base is improved from prior day imaging Medical Problem List: Shortness of breath suspect acute on chronic diastolic CHF Elevated troponin likely related to acute on chronic diastolic CHF History of hemochromatosis with liver transplant Hypertension Hyperlipidemia Diabetes mellitus type 2 insulin-dependent Chronic renal disease stage III with hyponatremia Anemia of chronic disease Hospital Course: Plan: Shortness of breath suspect acute on chronic diastolic CHF: Blood pressure sligh tly low this morning. Discontinue diuretic therapy. We will also discontinue blood pressure medication for now. Spoke with cardiology yesterday. Cardiology recommends cardiac stress test today. Echo unremarkable. Await cardiac stress test findings. Patient may require heart catheterization if cardiac stress test abnormal. If unremarkable patient desires to go home. Will need to discuss [facility] cardiology and nephrology about plan of care. Likely home in the next 24 hours. Elevated troponin likely related to acute on chronic diastolic CHF: Elevated troponin likely related to acute on chronic CHF. Echo unremarkable. Cardiac stress test ordered History of hemochromatosis with liver transplant: Continue with his antirejection medication. Hypertension: Blood pressure medication discontinued due to low blood pressure this morning. Will monitor closely. May need to make adjustments at discharge Hyperlipidemia: Continue with medication Diabetes mellitus type 2 insulin-dependent: Hemoglobin A1c 8.6. Sliding scale in place. Continue basal insulin. Will monitor and adjust appropriately. Chronic renal disease stage III with hyponatremia: Medications reviewed and adjusted by nephrology. Continue with nephrology recommendations as above. Patient will have echocardiogram and cardiac stress test to further evaluate. Code Status: Full Code DVT prophylaxis: Heparin Advanced Care Planning-30 minutes: Plan of care for the patient's discharge was discussed in detail with the patient and family. Vital Signs/Physical Exam: Temp Pulse Resp BP Pulse Ox 98.2 F 83 18 106/51 L 96 11/04/20 12:00 11/04/20 12:00 11/04/20 12:11/04/20 12:11/04/20 12:00 General: Alert, In no apparent distress, Oriented x3, Cooperative HEENT: Atraumatic Neck: Supple Respiratory: Clear to auscultation bilaterally Cardiovascular: Normal pulses, Regular rate/rhythm Gastrointestinal: Normal bowel sounds, No tenderness, No masses, No rebound, No guarding Musculoskeletal: No erythema, No tenderness, No warmth Integumentary: No tenderness/swelling Neurological: Normal speech, Normal strength at 5/5 x4 extr, Normal tone, Normal affect Laboratory Data at Discharge: WBC 11.20 K/uL (4.3-10.9) H D 11/04/20 05:23 Hgb 9.6 g/dL (13.6-17.9) L 11/04/20 05:23 Hct 29.3 % (39.6-49.0) L 11/04/20 05:23 Plt Count 475 K/uL (152-406) H 11/04/20 05:23 PT 15.8 SECONDS (9.5-12.5) H 11/02/20 13:55 INR 1.37 11/02/20 13:55 Sodium 128 mmol/L (136-145) L 11/04/20 05:23 Potassium 4.4 mmol/L (3.5-5.1) 11/04/20 05:23 BUN 24 mg/dL (7-18) H 11/04/20 05:23 Creatinine 1.74 mg/dL (0.55-1.3) H 11/04/20 05:23 Glucose 142 mg/dL (74-106) H 11/04/20 05:23 Phosphorus 3.4 mg/dL (2.5-4.9) 11/03/20 04:44 Magnesium 1.7 mg/dL (1.8-2.4) L 11/04/20 05:23 Total Bilirubin 0.3 mg/dL (0.2-1.0) 11/04/20 05:23 AST 12 U/L (15-37) L 11/04/20 05:23 ALT 15 U/L (12-78) 11/04/20 05:23 Alkaline Phosphatase 143 U/L (45-117) H 11/04/20 05:23 Troponin I 1.07 ng/mL (0.0-0.045) H* 11/03/20 04:44 Triglycerides 172 mg/dL (<150) H 11/03/20 04:44 Cholesterol 126 mg/dL (<200) 11/03/20 04:44 HDL Cholesterol 31 mg/dL (40-60) L 11/03/20 04:44 Cholesterol/HDL Ratio 4.06 11/03/20 04:44 Home Medications: Amlodipine [Norvasc*] 2.5 mg PO BID 11/02/20 Aspirin 81 mg PO DAILY 11/02/20 Fludrocortisone [Florinef *] 0.1 mg PO SEECOM 11/02/20 Insulin Aspart [Novolog Flexpen] See Protocol SQ TID 11/02/20 Insulin Glargine,Hum.rec.anlog [Lantus] 22 units SQ BEDTIME 11/02/20 Mycophenolate Sodium [Myfortic] 360 mg PO Q12H 11/02/20 Nebivolol HCl [Bystolic] 10 mg PO BID 11/02/20 Pantoprazole Sodium [Protonix] 40 mg PO DAILY 11/02/20 Pravastatin Sodium 20 mg PO DAILY 11/02/20 Semaglutide [Ozempic] 0.5 mg SQ EVERY 7TH DAY 11/02/20 Tacrolimus [Prograf] 3 cap PO BID 11/02/20 Diet: AHA Activity: Ad lavell Followup: Javi Manriquez MD [Primary Care Provider] - Time spent managing pt's care (in minutes): 55
--- NOTE | 2020-11-04 18:42 | RAD REPORT ---
EXAM DESCRIPTION: RAD - Chest Pa And Lat (2 Views) - 11/04/2020 5:58 pm CLINICAL HISTORY: Follow up SOB, rule out Pneumonia Chest pain. COMPARISON: Chest Single View dated 11/03/2020; Chest Pa And Lat (2 Views) dated 11/02/2020 FINDINGS: Left upper lobe pneumonia/ infiltrate pattern is mildly improved since comparative study. Emphysematous changes are present with small bilateral pleural effusions. No displaced fractures. IMPRESSION: Left upper lobe pneumonia has mildly improved since prior study.
--- NOTE | 2020-11-04 19:04 | CON ---
Date of Consultation: 11/03/2020 Reason For Consultation: Admitted to Dr. Valle on 11/02/2020 for congestive heart failure. I saw t he patient on 11/03/2020. History Of Present Illness: Mr. Block is a 60-year-old white male. Has had a history of hemochromato sis and has had a history of liver transplant. He came in with shortness of breath, pedal edema. He also has a history of hypertension, diabetes, gastroesophageal reflux disease. His symptoms have be en going on for a week. He denied any PND, orthopnea, palpitations, or syncope. Has had an atypical chest pain. Denied any fever or chills. He has been ruled out for myocardial infarction. Medications: Include pantoprazole, amlodipine, Bystolic, Myfortic, Prograf, pravastatin, fludrocorti sone, and insulin. Review of Systems: Negative. Social History: Negative. Family History: Noncontributory. Physical Examination: Vital Signs: Blood pressure 105/77, O2 saturation was 100% on room air. HEENT: Negative. Neck: Supple without any bruit, lymphadenopathy, JVD, or thyromegaly. Chest: Clear to auscultation and percussion. Cardiac: Revealed a regular rhythm and rate. No murmurs, gallops, or rubs. Abdomen: Benign. Extremities: Revealed no clubbing, cyanosis, or edema. Laboratory Data: Chest x-ray shows possible pneumonia in the right lung field base. Echocardiogram which was done revealed closer to normal ejection fraction with normal wall motion and no effusion. His EKG showed possible old inferior anterior infarct. A stress test, which was done, was also negat riki for ischemia. Impression And Plan: Shortness of breath, certainly could be related to possible pneumonia. He has had cough with chest pain. He does not appear to have congestive heart failure by echocardiography. His myocardial infarction has ruled out. It would be reasonable to send him home on a low dose Lasi x. His creatinine was 1.81. He had an elevated white count. He was mildly anemic. His sodium was 128. His glucose was 304. BNP was 10,727 with a troponin of 1.61. I think his troponin elevation a nd BNP elevation are secondary to demand ischemia from anemia and renal insufficiency. I think he ne eds to follow up with his transplant team in the near future. Continue his home medication at a low dose Lasix. I will be happy to see him in the office in the near future as well. MESHA/GUNNAR Voice ID: [id number] Report ID: [id number]
[2020-11-04] MEDS ORDERED: SOD FERRIC GLUC COMPLX/SUCROSE 250 MG in NA CHLORIDE 0.9% 100 ML IV ONE (20:00)
--- NOTE | 2020-11-04 21:09 | P.PN ---
Date of Service: 11/04/20 Vital Signs Temp Pulse Resp BP Pulse Ox 98.7 F 89 17 101/57 L 93 11/04/20 20:00 11/04/20 20:00 11/04/20 20:00 11/04/20 20:00 11/04/20 20:00 Medications Acetaminophen (Acetaminophen 500 Mg Tab) 500 mg PO Q4HP PRN PRN Reason: TEMP > 101' F Last Admin: 11/02/20 22:19 Dose: 500 mg Documented by: Aspirin (Aspirin Ec 81 Mg Tab) 81 mg PO DAILY [facility] Last Admin: 11/04/20 13:41 Dose: 81 mg Documented by: Dextrose (D50w 25 Gm/50 Ml Vial) 12.5 gm IV PRN PRN; Protocol PRN Reason: HYPOGLYCEMIA Enteral Nutritional Formula (Glucerna Shake 237 Ml Can) 237 ml PO BID [facility] Last Admin: 11/04/20 08:26 Dose: Not Given Documented by: Fludrocortisone Acetate (Fludrocortisone 0.1 Mg Tab) 0.1 mg PO Q48H [facility] Last Admin: 11/03/20 10:34 Dose: 0.1 mg Documented by: Glucagon (Glucagon 1 Mg/Vial) 1 mg IM 1X PRN; Protocol PRN Reason: HYPOGLYCEMIA Heparin Sodium (Porcine) (Heparin 5000 Unit/Ml 1 Ml Vial) 5,000 unit SQ Q12HR [facility] Last Admin: 11/04/20 08:28 Dose: 5,000 unit Documented by: Home Med (Mycophenolate Sodium [Myfortic]) 360 mg PO Q12HR [facility] Last Admin: 11/04/20 08:29 Dose: Not Given Documented by: Home Med (Tacrolimus [Prograf]) 3 cap PO BID [facility] Last Admin: 11/04/20 08:29 Dose: Not Given Documented by: Home Med (Pravastatin 20 Mg Tablet) 1 ea PO DAILY [facility] Last Admin: 11/04/20 08:29 Dose: Not Given Documented by: Home Med (Pantoprazole [address] Tablet) 1 ea PO ACB [facility]; Protocol Last Admin: 11/04/20 07:30 Dose: Not Given Documented by: Sodium Chloride (Sodium Chloride) 500 mls @ 999 mls/hr IV PRN PRN PRN Reason: hypotension Last Admin: 11/04/20 04:47 Dose: 500 mls Documented by: Ferric Sodium Gluconate Complex 250 mg/ Sodium Chloride 120 mls @ 100 mls/hr IV 1X ONE Stop: 11/04/20 21:11 Insulin Glargine (Insulin Glargine 100 Units/Ml) 22 units SQ BEDTIME SPIKE Last Admin: 11/03/20 21:24 Dose: 22 units Documented by: Insulin Human Regular (Insulin -Regular Human 50 Unit/0.5 Ml Ml) 0 unit SQ ACHS SPIKE; Protocol Last Admin: 11/04/20 16:30 Dose: 6 unit Documented by: Ondansetron HCl (Ondansetron 4 Mg/2 Ml Vial) 4 mg IV Q6HP PRN PRN Reason: NAUSEA / VOMITING Sodium Chloride (Flush Normal Saline 10 Ml) 10 ml IV BID SPIKE Last Admin: 11/04/20 08:29 Dose: 10 ml Documented by: Assessment/ Plan: Nephrology Progress Note Feeling better today No chest pain or dyspnea No acute events overnight Vitals, medications blood work and imaging reviewed in the chart NAD. NCAT. MMM. Neck supple. CTA. RRR. ND Abd. No C/C/E. AAO. Normal speech. A/P Continue current POC and Medications other than the changes listed. AM labs as ordered. Recommend daily weight. CKD III -No NSAIDs Hyponatremia -Continue Florinef Hypomagnesemia -Replete with IV mag HTN with CKD complicated by hypotension -Hold Amlodipine Diastolic CHF, A/C -Lasix prn DM II with CKD -Continue Lantus -RISS Moderate malnutrition -Continue Glucerna Anemia in chronic illness Iron Deficiency -Give IV iron Hx Hemochromatosis sp liver transplant -Continue tacrolimus and mycophenolate Case reviewed with Dr. Valle
[2020-11-04] MEDS: INSULIN GLARGINE 100 UNITS/ML SQ SCH (21:20)
[2020-11-05 05:36] LABS: Absolute Lymphocytes (CBC) 1.6 K/uL (0.7-4.9); Hematocrit 29.5 % (39.6-49.0); Lymphocytes % 14.2 % (15.3-44.8); MPV 7.7 fL (7.6-11.3); RBC Red Blood Cell Count 3.92 M/uL (4.33-5.43)
[2020-11-05 05:59] LABS: Bilirubin Total 0.3 mg/dL (0.2-1.0); Magnesium 1.9 mg/dL (1.8-2.4); Potassium 4.3 mmol/L (3.5-5.1); Protein, Total 5.6 g/dL (6.4-8.2)
[2020-11-05] MEDS ORDERED: NA CHLORIDE 0.9% 250 ML IV ONE ×2 (07:17→10:46)
[2020-11-05] MEDS: INSULIN -REGULAR HUMAN 50 UNIT/0.5 ML ML SQ SCH ×3 (07:30→17:00)
[2020-11-05] MEDS ORDERED: AZITHROMYCIN IV 500 MG in NA CHLORIDE 0.9% 250 ML IVPB SCH ×2 (08:00→09:00)
--- NOTE | 2020-11-05 08:23 | P.CNS ---
Date of Consult: 11/05/20 Reason for Consult: Abnormal chest x-ray Primary Care Provider: Dr. Mckeon Chief Complaint: CHF exacerbation History of Present Illness: Patient is 60 years of age status post liver transplant anabolic syndrome admitted with worsening dyspnea for the past week denies any fever chills patient is an active smoker no prior history of nuno virus infection he feels much better was diuresed chest x-ray shows a left upper lobe infiltrate denies now any orthopnea Allergies No Known Allergies Allergy (Verified 11/02/20 20:26) Home Medications: Amlodipine [Norvasc*] 2.5 mg PO BID 11/02/20 Aspirin 81 mg PO DAILY 11/02/20 Fludrocortisone [Florinef *] 0.1 mg PO SEECOM 11/02/20 Insulin Aspart [Novolog Flexpen] See Protocol SQ TID 11/02/20 Insulin Glargine,Hum.rec.anlog [Lantus] 22 units SQ BEDTIME 11/02/20 Mycophenolate Sodium [Myfortic] 360 mg PO Q12H 11/02/20 Nebivolol HCl [Bystolic] 10 mg PO BID 11/02/20 Pantoprazole Sodium [Protonix] 40 mg PO DAILY 11/02/20 Pravastatin Sodium 20 mg PO DAILY 11/02/20 Semaglutide [Ozempic] 0.5 mg SQ EVERY 7TH DAY 11/02/20 Tacrolimus [Prograf] 3 cap PO BID 11/02/20 - Past Medical/Surgical History Diabetic: Yes -: HTN -: T2DM -: HLD -: skin cancer -: hemochromatosis -: liver transplant 2006 -: appendectomy Psychosocial/ Personal History: lives w/ - Family History Mother Medical History: Diabetes - Social History Smoking Status: Current every day smoker Alcohol use: No CD- Drugs: No Caffeine use: Yes Place of Residence: Home Review of Systems 10-point ROS is otherwise unremarkable Physical Examination Temp Pulse Resp BP Pulse Ox 98.9 F 83 16 94/52 L 96 11/05/20 00:00 11/05/20 03:34 11/05/20 03:34 11/05/20 03:34 11/05/20 03:34 General: Alert, In no apparent distress, Oriented x3 Respiratory: Clear to auscultation bilaterally Cardiovascular: No edema, Regular rate/rhythm Gastrointestinal: Normal bowel sounds, Soft and benign - Problems (1) Abnormal chest x-ray Current Visit: Yes Status: Acute Plan: Patient is 60 years of age admitted with possible congestive heart failure he feels much better was diuresed patient has prominent interstitial changes worse on the left side of the lung particularly in the left upper lobe there has been no change since admission no evidence of any sepsis he does take Prograf and tacrolimus for his liver transplant would be a reason for interstitial lung disease current normal echocardiogram I have ordered CT chest without contrast for with me in 2 weeks withhold treatment for now business change manager to levofloxacin for discharge another follow-up x-ray in 2 weeks oxygenation is satisfactory blood pressure is slightly low he is on fludrocortisone history of diabetes patient has renal is insufficiency with mild hyponatremia
[2020-11-05] MEDS: ASPIRIN EC 81 MG TAB PO SCH (08:48)
[2020-11-05] MEDS: CEFTRIAXONE/SWI 1gm 1 GM/10 ML SYR IV SCH ×2 (08:48→09:00)
[2020-11-05] MEDS: FLUDROCORTISONE 0.1 MG TAB PO SCH (08:48)
[2020-11-05] MEDS: HEPARIN 5000 UNIT/ML 1 ML VIAL SQ SCH (08:49)
[2020-11-05] MEDS: GLUCERNA SHAKE 237 ML CAN PO SCH (08:49)
[2020-11-05] MEDS: PANTOPRAZOLE 40 MG PO SCH (08:51)
[2020-11-05] MEDS: PRAVASTATIN 20 MG TABLET PO SCH (08:52)
[2020-11-05] MEDS: MYCOPHENOLATE SODIUM 360 MG PO SCH (08:53)
[2020-11-05] MEDS: Tacrolimus [Prograf] 1 MG Capsule PO SCH (08:54)
--- NOTE | 2020-11-05 08:55 | TREADPHA ---
DX: CHEST PAIN Date of Study: 11/04/2020 Ht: 5' 10 " Wt: 181 lb 4.8 oz Consulting Physician: TONA MEDICATIONS: TYLENOL, ASPIRIN, DEXTROSE, FLORINEF, GLUCAGEN, HEPARIN, LANTUS, NOVOLON-R, ZOFRAN HISTORY: HYPERTENSION, INSULIN DEPENDENT DIABETES MELLITUS, NO FAMILY HISTORY, SMOKER, LIVER TRANSPLANT PHYSICIAL EXAMINATION: RESTING B.P.: 117/62 RESTING H.R.: 85 RESTING EKG: SINUS RHYTHM, LEFT BUNDLE BRANCH BLOCK PROTOCOL: PHARMACOLOGIC EXERCISE TIME: 3:30 B.P. AT PEAK STRESS: 122/62 IMPRESSION: LEXISCAN STRESS TEST PERFORMED. CARDIOLITE INJECTED PER PROTOCOL. SEE NUCLEAR MEDICINE REPORT. NO SUPRAVENTRICULAR TACHYCARDIA. NO VENTRICULAR TACHYCARDIA. NO ARRHYTHMIAS NOTED. RESPIRATORY EVEN NON LABORED. PATIENT TOLERATED WELL.
[2020-11-05] MEDS ORDERED: CEFTRIAXONE 1 GM/NS 50 ML 1 GM/50 ML BAG IV SCH (09:00)
[2020-11-05] MEDS ORDERED: CEFTRIAXONE/SWI 1gm 1 GM/10 ML SYR IV SCH (09:00)
[2020-11-05] MEDS ORDERED: METHYLPREDNISOLONE 40 MG INJ IV ONE (09:13)
--- NOTE | 2020-11-05 09:18 | P.DS ---
Admission Date: 11/02/20 Discharge Date: 11/05/20 Primary Care Provider: Dr. Mckeon Disposition: ROUTINE DISCHARGE Discharge Condition: GOOD Reason for Admission: CHF exacerbation Consultations: Cardiology-Dr. Dejesus Nephrology-Dr. Leyva Pulmonary-Dr. Smith Procedures: COVID: Negative ECHO: MEASUREMENTS (cm) DIASTOLIC (NORMALS) SYSTOLIC (NORMALS) IVSd 1.0 (0.6-1.2) LA Diam 3.5 (1.9-4.0) LVEF 57% LVIDd 5.7 (3.5-5.7) LVIDs 4.0 (2.0-3.5) %FS 30% LVPWd 1.0 (0.6-1.2) Ao Diam 2.9 (2.0-3.7) 2 DIMENSIONAL ASSESSMENT: RIGHT ATRIUM: NORMAL LEFT ATRIUM: NORMAL RIGHT VENTRICLE: NORMAL LEFT VENTRICLE: NORMAL TRICUSPID VALVE: NORMAL MITRAL VALVE: NORMAL PULMONIC VALVE: NORMAL AORTIC VALVE: NORMAL PERICARDIAL EFFUSION: NONE AORTIC ROOT: NORMAL LEFT VENTRICULAR WALL MOTION: NORMAL. DOPPLER/COLOR FLOW: NORMAL. COMMENTS: NORMAL 2D ECHO WITH DOPPLER. NO WALL MOTION ABNORMALITY. NO EFFUSION. Cardiac Stress Test: FINDINGS: The exam was technically difficult. Heart measured very large with end-diastolic volume of 309 mL and an end systolic volume of 250 mL. This calculates to an 19% ejection fraction. The heart does not appear this enlarged on the November 03 chest examination. The heart is difficult to fully incorporated into the [id number] due to its large size. Large fixed defects are seen along the entire length of the inferior wall and significant portions of the mid and apical septal wall. An area of stress-induced ischemic change was not identifiable. There is a large fixed defect at the apex. IMPRESSION: No stress-induced ischemic change identifiable. Large fixed defects are seen along the inferior wall and the apex. Calculated EDV 309 mL, ESV 250 mL and a 19% ejection fraction calculation. CXR: FINDINGS: Extensive chronic interstitial lung disease is again noted. Interstitial and alveolar opacities have improved in the right lung base. No progressive right lung field finding. However, interstitial and alveolar opacities have shown progression on the left. Heart and vasculature are normal. No measurable pleural effusion and no pneumothorax. No acute bony abnormality seen. No acute aortic findings suspected. IMPRESSION: Worsening interstitial and alveolar opacification of the left lung field. Unilateral progression is not common in CHF and correlation is needed with any pneumonia findings. Right lung field base is improved from prior day imaging. CT scan chest: COMPARISON: Chest Pa And Lat (2 Views) dated 11/04/2020 FINDINGS: There is a significant amount of alveolar in airspace opacification in the left upper lobe. There is soft tissue density seen surrounding the left hilar structures measuring approximately 4.8 x 4.6 cm. Assessment is limited by lack of IV contrast material. Additional enlarged lymph nodes are seen in the mediastinum, in the prevascular space measuring to 15 mm, AP window measuring up to 13 mm. Enlarged subcarinal lymph node 25 mm. There is a small left pleural effusion noted. Areas of atelectasis are present in the right lower lobe. No concerning bony finding. No gross upper abdominal finding. All CT scans are performed using dose optimizatin technique as appropriate and may include automated exposure control or mA/KV adjustment according to patient size. IMPRESSION: Significant alveolar in airspace opacification of the left upper lobe with small left pleural effusion.There is soft tissue density masslike lesion in the left hilum as well. The combination of findings raise suspicion for a left hilar mass with postobstructive pneumonia. Consider CT chest with contrast to better assess the left hilar region. Alternatively, bronchoscopy may be of value. Medical Problem List: Shortness of breath likely related to interstitial lung disease with CT findings showing left upper lobe opacification with small left pleural effusion likely soft tissue density masslike lesion in the left hilum Elevated troponin likely from ischemic demand related to anemia, interstitial lung disease and chronic renal disease with noted cardiac stress test showing no stress-induced ischemia History of hemochromatosis with liver transplant Hypertension Hyperlipidemia Diabetes mellitus type 2 insulin-dependent Chronic renal disease stage III with hyponatremia Anemia of chronic disease Adrenal insufficiency on Florinef Brief History of Present Illness: 60-year-old male with history of hypertension, diabetes mellitus type 2, tobacco abuse, liver transplant s/p 2006 on antirejection medication. Patient presented with increasing shortness of breath over the past week. Patient had productive cough with generalized chest pain. Patient denied any fever, chills. Patient admitted for further evaluation and treatment. Hospital Course: Patient presented with shortness of breath. Patient was evaluated in the hospital. This included cardiology evaluation. Elevated troponin was noted. Work-up included echocardiogram which was unremarkable. Cardiac stress test was performed showed no stress-induced ischemia. Chest x-ray showed interstitial lung disease. CT scan performed showed significant alveolar airspace opacification in the left upper lobe with small left pleural effusion. Soft tissue density masslike lesion in the left hilum was noted. Combination of findings raise suspicion for left hilar mass with postobstructive pneumonia. Patient was given IV antibiotic therapy. Patient has done well. Patient not requiring any oxygen at discharge. Pulmonology recommends patient to follow-up as an outpatient. Patient will likely require repeat CT scan with contrast if renal function improved to further evaluate. Other possible need would be for bronchoscopy to evaluate further. This can be done with the help of pulmonology. Patient will need to follow-up with pulmonology in 1 week. Case also discussed at length with cardiology. No indication for CHF. Elevated troponin likely related to ischemic demand related to his chronic renal disease, anemia and interstitial lung disease. Pulmonology also suspects shortness of breath related to interstitial lung disease. This may be related to one of his antirejection medicationPrograf or tacrolimus. At discharge recommend to continue prednisone 10 mg 1 pill twice daily for 7 days and 1 pill once daily for 7 days. Recommend follow-up with pulmonology in 1 to 2 weeks to follow-up his hospitalization. As stated above patient will likely require repeat CT scan with contrast and possible bronchoscopy to further evaluate. Patient will need to follow-up with lung transplant team to determine further. Patient may need to be taken off one of his antirejection medications due to interstitial lung disease. Patient with history of hemochromatosis and liver transplant. Currently on antirejection medication. Patient will continue with his current medicationsMyfortic 360 mg 1 pill twice daily and Prograf 3 mg 1 pill twice daily. Pulmonology will follow up with patient along with liver transplant team to determine whether if medication may need to be discontinued or adjusted e specially in light of interstitial lung disease. This can be further evaluated by pulmonology and liver transplant team. Patient with hypertension. Blood pressures have remained low.Blood pressure medications Norvasc 2.5 mg 1 pill twice daily and Bystolic 10 mg 1 pill twice daily were held. At discharge recommend to monitor blood pressure closely. Recommend to continue to hold blood pressure medication at discharge. Especially since blood pressure systolic has been less than 110. Continue to hold blood pressure medication if systolic less than 110. Recommend follow-up with PCP in 1 week to further monitor and adjust medication. Patient may not require medication in the near future. Patient with hyperlipidemia. At discharge patient may continue with his current medicationpravastatin 20 mg daily. Patient with diabetes mellitus type 2. Hemoglobin A1c 8.6. At discharge patient will continue with his current insulin regimenLantus 22 units subcu at bedtime and NovoLog sliding scale. Patient also taking Ozempic as directed. Recommend to maintain blood sugar less than 140 fasting and less than 200 after meals. Further adjustment can be done by his PCP. Patient with chronic renal disease stage III with hyponatremia. Nephrology was consulted. Recommend patient medications to be renally dosed. Recommend to recheck labBMP in 1 week to monitor his progress. Recommend follow-up with nephrology in 1 to 2 weeks to follow-up his hospitalization and continue his care. Patient with anemia of chronic disease. This has remained stable. Recommend to recheck labCBC in 1 to 2 weeks to follow-up and monitor closely. Patient with history of adrenal insufficiency. Patient takes Florinef. Patient will continue with Florinef as directed. Patient may continue with aspirin 81 mg daily. Vital Signs/Physical Exam: Temp Pulse Resp BP Pulse Ox 97.7 F 85 18 106/59 L 95 11/05/20 08:00 11/05/20 08:00 11/05/20 08:00 11/05/20 08:00 11/05/20 08:00 General: Alert, In no apparent distress, Oriented x3, Cooperative HEENT: Atraumatic Neck: Supple Respiratory: Clear to auscultation bilaterally, Normal air movement Cardiovascular: Normal pulses, Regular rate/rhythm Gastrointestinal: Normal bowel sounds, No tenderness, No masses, No rebound, No guarding Musculoskeletal: No erythema, No tenderness, No warmth Integumentary: No tenderness/swelling Neurological: Normal speech, Normal strength at 5/5 x4 extr, Normal tone, Normal affect Laboratory Data at Discharge: WBC 11.30 K/uL (4.3-10.9) H 11/05/20 05:13 Hgb 9.9 g/dL (13.6-17.9) L 11/05/20 05:13 Hct 29.5 % (39.6-49.0) L 11/05/20 05:13 Plt Count 485 K/uL (152-406) H 11/05/20 05:13 PT 15.8 SECONDS (9.5-12.5) H 11/02/20 13:55 INR 1.37 11/02/20 13:55 Sodium 128 mmol/L (136-145) L 11/05/20 05:13 Potassium 4.3 mmol/L (3.5-5.1) 11/05/20 05:13 BUN 27 mg/dL (7-18) H 11/05/20 05:13 Creatinine 1.72 mg/dL (0.55-1.3) H 11/05/20 05:13 Glucose 122 mg/dL (74-106) H 11/05/20 05:13 Phosphorus 3.4 mg/dL (2.5-4.9) 11/03/20 04:44 Magnesium 1.9 mg/dL (1.8-2.4) 11/05/20 05:13 Total Bilirubin 0.3 mg/dL (0.2-1.0) 11/05/20 05:13 AST 12 U/L (15-37) L 11/05/20 05:13 ALT 15 U/L (12-78) 11/05/20 05:13 Alkaline Phosphatase 156 U/L (45-117) H 11/05/20 05:13 Troponin I 1.07 ng/mL (0.0-0.045) H* 11/03/20 04:44 Triglycerides 172 mg/dL (<150) H 11/03/20 04:44 Cholesterol 126 mg/dL (<200) 11/03/20 04:44 HDL Cholesterol 31 mg/dL (40-60) L 11/03/20 04:44 Cholesterol/HDL Ratio 4.06 11/03/20 04:44 Home Medications: Aspirin 81 mg PO DAILY 11/02/20 Fludrocortisone [Florinef *] 0.1 mg PO SEECOM 11/02/20 Insulin Aspart [Novolog Flexpen] See Protocol SQ TID 11/02/20 Insulin Glargine,Hum.rec.anlog [Lantus] 22 units SQ BEDTIME 11/02/20 Mycophenolate Sodium [Myfortic] 360 mg PO Q12H 11/02/20 Pantoprazole Sodium [Protonix] 40 mg PO DAILY 11/02/20 Pravastatin Sodium 20 mg PO DAILY 11/02/20 Semaglutide [Ozempic] 0.5 mg SQ EVERY 7TH DAY 11/02/20 Tacrolimus [Prograf] 3 cap PO BID 11/02/20 predniSONE [Deltasone*] 10 mg PO SEECOM #21 tab 11/05/20 New Medications: predniSONE [Deltasone*] 10 mg PO SEECOM #21 tab Physician Discharge Instructions: Patient presented with shortness of breath. Patient was evaluated in the [facility]. This included cardiology evaluation. Elevated troponin was noted. Work- up included echocardiogram which was unremarkable. Cardiac stress test was performed showed no stress-induced ischemia. Chest x-ray showed interstitial lung disease. CT scan performed showed significant alveolar airspace opacification in the left upper lobe with small left pleural effusion. Soft tissue density masslike lesion in the left hilum was noted. Combination of findings raise suspicion for left hilar mass with postobstructive pneumonia. Patient was given IV antibiotic therapy. Patient has done well. Patient not requiring any oxygen at discharge. Pulmonology recommends patient to follow-up as an outpatient. Patient will likely require repeat CT scan with contrast if renal function improved to further evaluate. Other possible need would be for bronchoscopy to evaluate further. This can be done with the help of pulmonology. Patient will need to follow-up with pulmonology in 1 week. Case also discussed at length with cardiology. No indication for CHF. Elevated troponin likely related to ischemic demand related to his chronic renal disease, anemia and interstitial lung disease. Pulmonology also suspects shortness of breath related to interstitial lung disease. This may be related to one of his antirejection medicationPrograf or tacrolimus. At discharge recommend to continue prednisone 10 mg 1 pill twice daily for 7 days and 1 pill once daily for 7 days. Recommend follow-up with pulmonology in 1 to 2 weeks to follow-up his hospitalization. As stated above patient will likely require repeat CT scan with contrast and possible bronchoscopy to further evaluate. Patient will need to follow-up with lung transplant team to determine further. Patient may need to be taken off one of his antirejection medications due to interstitial lung disease. Patient with history of hemochromatosis and liver transplant. Currently on antirejection medication. Patient will continue with his current medicationsMyfortic 360 mg 1 pill twice daily and Prograf 3 mg 1 pill twice daily. Pulmonology will follow up with patient along with liver transplant team to determine whether if medication may need to be discontinued or adjusted especially in light of interstitial lung disease. This can be further evaluated by pulmonology and liver transplant team. Patient with hypertension. Blood pressures have remained low.Blood pressure medications Norvasc 2.5 mg 1 pill twice daily and Bystolic 10 mg 1 pill twice daily were held. At discharge recommend to monitor blood pressure closely. Recommend to continue to hold blood pressure medication at discharge. Especially since blood pressure systolic has been less than 110. Continue to hold blood pressure medication if systolic less than 110. Recommend follow-up with PCP in 1 week to further monitor and adjust medication. Patient may not require medication in the near future. Patient with hyperlipidemia. At discharge patient may continue with his current medicationpravastatin 20 mg daily. Patient with diabetes mellitus type 2. Hemoglobin A1c 8.6. At discharge patient will continue with his current insulin regimenLantus 22 units subcu at bedtime and NovoLog sliding scale. Patient also taking Ozempic as directed. Recommend to maintain blood sugar less than 140 fasting and less than 200 after meals. Further adjustment can be done by his PCP. Patient with chronic renal disease stage III with hyponatremia. Nephrology was consulted. Recommend patient medications to be renally dosed. Recommend to recheck labBMP in 1 week to monitor his progress. Recommend follow-up with nephrology in 1 to 2 weeks to follow-up his hospitalization and continue his care. Patient with anemia of chronic disease. This has remained stable. Recommend to recheck labCBC in 1 to 2 weeks to follow-up and monitor closely. Patient with history of adrenal insufficiency. Patient takes Florinef. Patient will continue with Florinef as directed. Patient may continue with aspirin 81 mg daily. Diet: AHA Activity: Ad lavell Followup: Javi Manriquez MD [Primary Care Provider] - Time spent managing pt's care (in minutes): 55
--- NOTE | 2020-11-05 10:23 | P.PN ---
Date of Service: 11/05/20 Vital Signs Temp Pulse Resp BP Pulse Ox 97.7 F 85 18 106/59 L 95 11/05/20 08:00 11/05/20 08:00 11/05/20 08:00 11/05/20 08:00 11/05/20 08:00 Medications Acetaminophen (Acetaminophen 500 Mg Tab) 500 mg PO Q4HP PRN PRN Reason: TEMP > 101' F Last Admin: 11/02/20 22:19 Dose: 500 mg Documented by: Aspirin (Aspirin Ec 81 Mg Tab) 81 mg PO DAILY [facility] Last Admin: 11/05/20 08:48 Dose: 81 mg Documented by: Dextrose (D50w 25 Gm/50 Ml Vial) 12.5 gm IV PRN PRN; Protocol PRN Reason: HYPOGLYCEMIA Enteral Nutritional Formula (Glucerna Shake 237 Ml Can) 237 ml PO BID [facility] Last Admin: 11/05/20 08:49 Dose: 237 ml Documented by: Fludrocortisone Acetate (Fludrocortisone 0.1 Mg Tab) 0.1 mg PO Q48H [facility] Last Admin: 11/05/20 08:48 Dose: 0.1 mg Documented by: Glucagon (Glucagon 1 Mg/Vial) 1 mg IM 1X PRN; Protocol PRN Reason: HYPOGLYCEMIA Heparin Sodium (Porcine) (Heparin 5000 Unit/Ml 1 Ml Vial) 5,000 unit SQ Q12HR [facility] Last Admin: 11/05/20 08:49 Dose: 5,000 unit Documented by: Home Med (Mycophenolate Sodium [Myfortic]) 360 mg PO Q12HR [facility] Last Admin: 11/05/20 08:53 Dose: 360 mg Documented by: Home Med (Tacrolimus [Prograf]) 3 cap PO BID [facility] Last Admin: 11/05/20 08:54 Dose: Not Given Documented by: Home Med (Pravastatin 20 Mg Tablet) 1 ea PO DAILY [facility] Last Admin: 11/05/20 08:52 Dose: 1 ea Documented by: Home Med (Pantoprazole [address] Tablet) 1 ea PO ACB [facility]; Protocol Last Admin: 11/05/20 08:51 Dose: 1 ea Documented by: Sodium Chloride (Sodium Chloride) 500 mls @ 999 mls/hr IV PRN PRN PRN Reason: hypotension Last Admin: 11/04/20 04:47 Dose: 500 mls Documented by: Insulin Glargine (Insulin Glargine 100 Units/Ml) 22 units SQ BEDTIME [facility] Last Admin: 11/04/20 21:20 Dose: 22 units Documented by: Insulin Human Regular (Insulin -Regular Human 50 Unit/0.5 Ml Ml) 0 unit SQ ACHS [facility]; Protocol Last Admin: 11/05/20 07:30 Dose: Not Given Documented by: Ondansetron HCl (Ondansetron 4 Mg/2 Ml Vial) 4 mg IV Q6HP PRN PRN Reason: NAUSEA / VOMITING Prednisone (Prednisone 10 Mg Tab) 10 mg PO DAILY [facility] Sodium Chloride (Flush Normal Saline 10 Ml) 10 ml IV BID [facility] Last Admin: 11/05/20 08:53 Dose: 10 ml Documented by: Assessment/ Plan: Nephrology Progress Note Doing well today. Ready to go home. No chest pain or dyspnea No acute events overnight Vitals, medications blood work and imaging reviewed in the chart NAD. NCAT. MMM. Neck supple. CTA. RRR. ND Abd. No C/C/E. AAO. Normal speech. A/P Continue current POC and Medications other than the changes listed. AM labs as ordered. Recommend daily weight. CKD III -No NSAIDs Hyponatremia -Change Florinef daily for the inpt stay Hypomagnesemia -Replete with IV mag PRN HTN with CKD complicated by hypotension -Hold Amlodipine Diastolic CHF, A/C -Lasix prn DM II with CKD -Continue Lantus -RISS Moderate malnutrition -Continue Glucerna Anemia in chronic illness Iron Deficiency Hx Hemochromatosis sp liver transplant -Continue tacrolimus and mycophenolate Case reviewed with Dr. Valle Follow up CT Chest for possible PNA vs interstitial disease
[2020-11-05] MEDS ORDERED: FLUDROCORTISONE 0.1 MG TAB PO SCH (10:24)
[2020-11-05] MEDS ORDERED: SODIUM CHLORIDE 1 GM TAB PO ONE (10:30)
--- NOTE | 2020-11-05 11:04 | RAD REPORT ---
EXAM DESCRIPTION: CT - Thorax Wo Con CLINICAL HISTORY: Chest pain Pulmonary and interstitial lung disease COMPARISON: Chest Pa And Lat (2 Views) dated 11/04/2020 FINDINGS: There is a significant amount of alveolar in airspace opacification in the left upper lobe . There is soft tissue density seen surrounding the left hilar structures measuring approximately 4.8 x 4.6 cm. Assessment is limited by lack of IV contrast material. Additional enlarged lymph nodes are seen in the mediastinum, in the prevascular space measuring to 15 mm, AP window measuring up to 13 m m. Enlarged subcarinal lymph node 25 mm. There is a small left pleural effusion noted. Areas of atelectasis are present in the right lower lob e. No concerning bony finding. No gross upper abdominal finding. All CT scans are performed using dose optimization technique as appropriate and may include automated exposure control or mA/KV adjustment according to patient size. IMPRESSION: Significant alveolar in airspace opacification of the left upper lobe with small left pl eural effusion.There is soft tissue density masslike lesion in the left hilum as well. The combinatio n of findings raise suspicion for a left hilar mass with postobstructive pneumonia. Consider CT chest with contrast to better assess the left hilar region. Alternatively, bronchoscopy m ay be of value.
[2020-11-05 16:09] VITALS: O2SAT 95
[2020-11-05 16:47] VITALS: BP 92/57; TEMP 98.2
[2020-11-06] MEDS ORDERED: predniSONE 10 MG TAB PO SCH (09:00)
== END 2020-11-05 17:31 | disposition home or self-care (01) | DRG 178 ==
LOC: ER 11:52 → ERHOLD 17:17 → 2ND 19:30
PROVIDERS: ADMIT Family Medicine; ATTEND Family Medicine
DX: J69.0 Pneumonitis due to inhalation of food and vomit (principal); J90 Pleural effusion, not elsewhere classified; I24.8 Other forms of acute ischemic heart disease; Z94.4 Liver transplant status; E87.1 Hypo-osmolality and hyponatremia; E27.40 Unspecified adrenocortical insufficiency; J84.9 Interstitial pulmonary disease, unspecified; R91.8 Other nonspecific abnormal finding of lung field; I12.9 Hypertensive chronic kidney disease with stage 1 through stage 4 chronic kidney disease, or unspecified chronic kidney disease; N18.30 Chronic kidney disease, stage 3 unspecified; E78.5 Hyperlipidemia, unspecified; F17.210 Nicotine dependence, cigarettes, uncomplicated; D63.8 Anemia in other chronic diseases classified elsewhere; Z20.822 Contact with and (suspected) exposure to COVID-19
CPT/HCPCS: 36415; 71045; 71046; 71250; 78452; 80048; 80053; 80061; 80076; 81003; 82550; 82553; 82607; 82728; 82947; 83036; 83540; 83735; 83880; 84100; 84145; 84439; 84443; 84466; 84484; 85025; 85610; 87040; 87070; 87205; 93005; 93017; 93306; 94760; 99284; A9500; J0456; J0696; J1644; J1815; J1940; J2785; J2916; J2920; J3475; J7040; J7050; U0003